=== PATIENT | female | born 1990 | race Hispanic/Latino ===

== ENCOUNTER 2017-11-08 11:59 | Inpatient (IN) | payer BC ==
[2017-11-08 17:36] LABS: HEMATOCRIT 33.4 % (36-48); MEAN CORPUSCULAR HEMOGLOBIN 31.7 pg (27.0-33.0); MEAN CORPUSCULAR HGB CONC 35.2 g/dL (32.0-36.0); MEAN CORPUSCULAR VOLUME 89.9 fL (79-99); PLATELET COUNT (AUTO) 179 K/uL (130-400); RED BLOOD CELL COUNT(AUTO) 3.71 MIL/uL (4.00-5.50); RED CELL DISTRIBUTION WIDTH 14.2 % (11.0-15.5); WHITE BLOOD COUNT (AUTO) 9.4 K/uL (4.8-10.8)
[2017-11-08 17:40] LABS: APPEARANCE,URINE Turbid (CLEAR); BILIRUBIN,URINE Negative (NEGATIVE); COLOR,URINE Dark Yellow (YELLOW); GLUCOSE, URINE (UA) Negative (NEGATIVE); KETONES,URINE Trace mg/dL (NEGATIVE); LEUKOCYTE ESTERASE ,URINE Moderate (NEGATIVE); NITRATE,URINE Negative (NEGATIVE); OCCULT BLOOD,URINE Large (NEGATIVE); PROTEIN,URINE POS 1+ (NEGATIVE)
[2017-11-08 17:53] LABS: BACTERIA,URINE Moderate /HPF (None Seen); SQUAMOUS EPITHELIAL CELL,UR TNTC /LPF (0-2); WBC,URINE >100 /HPF (0-1)
[2017-11-08] MEDS: LACTATED RINGERS 1000ML 1,000 ML IV PRN (17:55)
[2017-11-09] VITALS (9 sets, daily range): BP systolic 127–167; BP diastolic 76–93
[2017-11-09] MEDS: LACTATED RINGERS 1000ML 1,000 ML IV PRN ×2 (01:14→05:35)
[2017-11-09] MEDS ORDERED: OXYTOCIN 10 USP UNITS/ML 20 UNIT in LACTATED RINGERS 1000ML 1,000 ML IV SCH (03:00)
[2017-11-09] MEDS ORDERED: OXYTOCIN 10 USP UNITS/ML ONE ×2 (03:19→10:15)
[2017-11-09] MEDS ORDERED: LACTATED RINGERS 1000ML 1,000 ML IV ONE (03:19)
[2017-11-09] MEDS ORDERED: PROMETHAZINE HCL 25 MG/ML 1ML AMPULE IM SCH (05:15)
[2017-11-09] MEDS ORDERED: MEPERIDINE-PF 50 MG/ML SYG IVP ONE (05:15)
[2017-11-09] MEDS ORDERED: PROMETHAZINE HCL 25 MG/ML 1ML AMPULE IM ONE (05:17)
[2017-11-09] MEDS ORDERED: MEPERIDINE-PF 50 MG/ML SYG ONE (05:18)
[2017-11-09] MEDS ORDERED: LACTATED RINGERS 500 ML 500 ML IV PRN (06:30)
[2017-11-09] MEDS ORDERED: EPHEDRINE SULFATE 50 MG/ML AMPULE IVP PRN (06:30)
[2017-11-09] MEDS ORDERED: ROPIVACAINE 0.2%200ML EPIDURAL 200 ML EP SCH (06:30)
[2017-11-09] MEDS ORDERED: NALOXONE HCL 0.4 MG/1 ML ML IV PRN (06:30)
[2017-11-09] MEDS ORDERED: MEASLES/MUMPS/RUBELLA VACCINE, LIVE 0.5 ML/VIAL SQ PRN (10:45)
[2017-11-09] MEDS ORDERED: BENZOCAINE/LANOLIN/ALOE VERA 60 ML AEROSOL TP PRN (10:45)
[2017-11-09] MEDS ORDERED: ACETAMINOPHEN 325 MG TAB PO PRN (10:45)
[2017-11-09] MEDS ORDERED: WITCH HAZEL 1 PAD TP PRN (10:45)
[2017-11-09] MEDS ORDERED: DIPH,PERTUSS(ACELL),TET VAC/PF 0.5 ML VIAL IM PRN (10:45)
[2017-11-09] MEDS ORDERED: LANOLIN 30GM OINTMENT TP PRN (10:45)
[2017-11-09] MEDS ORDERED: DEXAMETHASONE SOD PHOSPHATE 10MG/ML 1ML VIAL ONE (11:40)
[2017-11-09] MEDS ORDERED: LIDOCAINE PF 2% 5ML ABBOJECT ONE (11:40)
[2017-11-09] MEDS ORDERED: GLYCOPYRROLATE 0.2 MG/ML 5 ML VIAL ONE (11:40)
[2017-11-09] MEDS ORDERED: ONDANSETRON HCL 4 MG/2 ML VIAL ONE (11:40)
[2017-11-09] MEDS ORDERED: PROPOFOL 10 MG/ML 20ML VIAL IV ONE (11:41)
[2017-11-09] MEDS ORDERED: MIDAZOLAM HCL 1 MG/ML 2ML VIAL ONE (11:41)
[2017-11-09] MEDS ORDERED: FENTANYL CITRATE PF 50 MCG/1 ML 2ML VIAL ONE ×2 (11:51→12:01)
[2017-11-09] MEDS ORDERED: MEPERIDINE-PF 25 MG/ML SYG ONE (12:53)
[2017-11-09] MEDS: IBUPROFEN 800 MG TAB PO PRN (14:49)
[2017-11-09] MEDS ORDERED: PNV1TABL17 PO (17:34)
[2017-11-09] MEDS: DOCUSATE SODIUM 100 MG CAP PO SCH (22:24)
[2017-11-10 03:10] VITALS: BP 121/59
[2017-11-10] MEDS: IBUPROFEN 800 MG TAB PO PRN ×2 (03:11→12:40)
[2017-11-10 05:30] LABS: HEMATOCRIT 24.7 % (36-48); MEAN CORPUSCULAR HEMOGLOBIN 31.7 pg (27.0-33.0); MEAN CORPUSCULAR HGB CONC 35.2 g/dL (32.0-36.0); MEAN CORPUSCULAR VOLUME 90.3 fL (79-99); PLATELET COUNT (AUTO) 132 K/uL (130-400); RED BLOOD CELL COUNT(AUTO) 2.73 MIL/uL (4.00-5.50); RED CELL DISTRIBUTION WIDTH 14.5 % (11.0-15.5); WHITE BLOOD COUNT (AUTO) 12.7 K/uL (4.8-10.8)
[2017-11-10 08:08] VITALS: BP 142/79
[2017-11-10] MEDS: DOCUSATE SODIUM 100 MG CAP PO SCH (08:47)
[2017-11-10 10:19] LABS: HEPATITIS Bs ANTIGEN SCREEN P Negative (Negative)
[2017-11-10 11:31] VITALS: BP 132/73
[2017-11-10] MEDS ORDERED: IBUP-2070 PO (13:04)
[2017-11-10] MEDS ORDERED: FERS325 PO (13:04)
== END 2017-11-10 13:50 | disposition home or self-care (01) | DRG 767 ==
LOC: LDH 16:48 → WSH 11-09 10:15 → EDSTATUS 11-16 11:56
PROVIDERS: ADMIT Obstetrics & Gynecology; ATTEND Obstetrics & Gynecology
PROC: 10E0XZZ Delivery of Products of Conception, External Approach (ICD-10-PCS; 2017-11-09)
PROC: 3E0R3BZ Introduction of Anesthetic Agent into Spinal Canal, Percutaneous Approach (ICD-10-PCS; 2017-11-09)
PROC: 00HU33Z Insertion of Infusion Device into Spinal Canal, Percutaneous Approach (ICD-10-PCS; 2017-11-09)
PROC: 3E0234Z Introduction of Serum, Toxoid and Vaccine into Muscle, Percutaneous Approach (ICD-10-PCS; 2017-11-09)
PROC: 0HQ9XZZ Repair Perineum Skin, External Approach (ICD-10-PCS; 2017-11-09)
PROC: 0UB70ZZ Excision of Bilateral Fallopian Tubes, Open Approach (ICD-10-PCS; principal; 2017-11-09 11:30)
DX: O69.81X0 Labor and delivery complicated by cord around neck, without compression, not applicable or unspecified (principal); F41.9 Anxiety disorder, unspecified; O70.0 First degree perineal laceration during delivery; Z37.0 Single live birth; Z23 Encounter for immunization; Z3A.39 39 weeks gestation of pregnancy; O99.344 Other mental disorders complicating childbirth
CPT/HCPCS: 36415; 81001; 85027; 86592; 86850; 86900; 86901; 87340; 88302; 90715; A4314; A4606; J1100; J2001; J2175; J2250; J2405; J2550; J2590; J2704; J2795; J3010; J3490; J7120